=== PATIENT | male | born 1985 | race African-American/Black ===

== ENCOUNTER → 2018-04-17 | Outpatient (CLI) | payer OTHER ==
[~2018-04-17] MED LIST: GASTROGRAFIN SOLUTION 30ML (Q9963) As Ordered; ISOVUE-370 76% 100ML VIAL (Q9967) As Ordered
== END ==
LOC: M RAD 13:10
DX: R10.30 Lower abdominal pain, unspecified (principal)
CPT/HCPCS: Q9963

== ENCOUNTER → 2018-11-26 | Outpatient (CLI) | payer OTHER ==
[~2018-11-26] MED LIST changes: -GASTROGRAFIN SOLUTION 30ML (Q9963) As Ordered; +GASTROGRAFIN SOLUTION 30ML (Q9963) As Ordered ONE; -ISOVUE-370 76% 100ML VIAL (Q9967) As Ordered; +ISOVUE-370 76% 125ML VIAL (Q9967 PER ML) As Ordered ONE
--- NOTE | 2018-11-26 15:31 | REP ---
CT abdomen and pelvis with IV and oral contrast: History: Hernia versus lymph node right side. Evaluate for inguinal versus femoral hernia. Question hernia versus lymph node on the right. The patient gives a history of previous hernia repair times three. Comparison CT study April 17, 2018. 100 ml of intravenous Isovue [address] findings: Preliminary digital scouts radiograph demonstrates a normal bowel gas pattern. Lung bases are clear on axial CT images. The liver and the spleen are normal in size and homogeneous in texture. Gallbladder shows no abnormality. Pancreas is unremarkable. No adrenal lesion is seen on either side. The kidneys enhance symmetrically are morphologically intact. No retroperitoneal mass or adenopathy is seen. Small and large intestinal bowel loops are normal in the abdomen. A normal appendix is seen. No pelvic mass or adenopathy is seen. Seminal vesicles, prostate and urinary bladder are intact. There is evidence of mesh hernia repair in the suprapubic region of the anterior abdominal wall extending to the right and the left. There is no evidence of inguinal or femoral hernia on either side. There is some postoperative linear fibrosis in the subcutaneous tissues in the left groin. There is no evidence of adenopathy in either groin. No vascular abnormality is observed. No abnormal fluid collection is seen. Bone window settings show no significant bony abnormality. Impression: No evidence of hernia, mass, adenopathy or abnormal fluid collection. Status post inguinal hernia repair. Otherwise negative CT study abdomen and pelvis. Electronically Signed by Dominick Martinez MD 11/26/2018 04:19 P
== END ==
LOC: M RAD 13:28
PROVIDERS: ATTEND Physician Assistant
DX: Z13.811 Encounter for screening for lower gastrointestinal disorder (principal); Z87.19 Personal history of other diseases of the digestive system
CPT/HCPCS: 74177; Q9963; Q9967

== ENCOUNTER → 2020-01-05 | Outpatient (REF) | payer OTHER | LOC: M SMT 16:57 | PROVIDERS: ATTEND Urology | DX: Z30.09 Encounter for other general counseling and advice on contraception (principal) ==

== ENCOUNTER → 2020-03-01 | Outpatient (REF) | payer OTHER ==
[2020-03-01 12:08] LABS: SEMEN APPEARANCE OPAQUE (OPAQUE); SEMEN VISCOSITY LIQUID (LIQUID); WBC CONCENTRATION <=1 M/ml (<=1 M/ml)
== END ==
LOC: M SMT 11:54
PROVIDERS: ATTEND Urology
DX: Z98.52 Vasectomy status (principal)